=== PATIENT | male | born 1980 | race Two or more races ===

== ENCOUNTER → 2017-12-14 | Outpatient (CLI) | payer OTHER | END | disposition home or self-care (01) | LOC: STAR 14:37 | PROVIDERS: ATTEND Surgery | DX: Z02.9 Encounter for administrative examinations, unspecified (principal) ==

== ENCOUNTER 2017-12-23 11:50 | Day surgery (SDC) | payer OTHER ==
[~2017-12-23] VITALS: Ht 188 cm; Wt 120.7 kg
[2017-12-23] MEDS ORDERED: EPINEPHRINE 1 MG/ML, 1ML ONE (12:00)
[2017-12-23] MEDS ORDERED: BUPIVACAINE/PF 0.5% ONE (12:00)
[2017-12-23] MEDS ORDERED: LACTATED RINGERS 1,000 ML IV SCH ×2 (12:31→14:35)
[2017-12-23 12:32] VITALS: BP 160/94
[2017-12-23] MEDS ORDERED: FENTANYL PF 250 MCG/5ML ONE (13:25)
[2017-12-23] MEDS ORDERED: MIDAZOLAM 1 MG/ML, 2ML ONE (13:25)
[2017-12-23] MEDS ORDERED: CEFAZOLIN 1,000 MG ONE (13:32)
[2017-12-23] MEDS ORDERED: PROPOFOL 10 MG/ML, 50ML ONE (13:32)
[2017-12-23] MEDS ORDERED: DEXAMETHASONE 4 MG/ML, 1ML ONE (13:32)
[2017-12-23] MEDS ORDERED: LIDOCAINE-MPF 2% ,5ML ONE (13:32)
[2017-12-23] MEDS ORDERED: ONDANSETRON 2MG/ML, 2ML ONE (13:32)
[2017-12-23] MEDS ORDERED: BUPIVACAINE/PF 0.5% INFIL ONE (13:58)
[2017-12-23] MEDS ORDERED: EPINEPHRINE 1 MG/ML, 1ML INFIL ONE (13:59)
[2017-12-23] MEDS ORDERED: HYDROmorphone 1 MG/ML, 1ML IV PRN (14:00)
[2017-12-23] MEDS ORDERED: hydrALAzine 20 MG/ML, 1ML IV PRN (14:00)
[2017-12-23] MEDS ORDERED: ACETAMINOPHEN 325 MG TABLET PO PRN (14:00)
[2017-12-23] MEDS ORDERED: KETOROLAC 30 MG/1 ML IV PRN (14:00)
[2017-12-23] MEDS ORDERED: MEPERIDINE/PF 25MG/0.5ML IVPush PRN (14:00)
[2017-12-23] MEDS ORDERED: MORPHINE SULFATE 4 MG/ML, 1ML IVPush PRN (14:00)
[2017-12-23] MEDS ORDERED: LABETALOL 5MG/ML, 20ML IV PRN (14:00)
[2017-12-23] MEDS ORDERED: ALBUTEROL SULFATE 2.5 MG/3 ML NPPB PRN (14:00)
[2017-12-23] MEDS ORDERED: OXYcodone 5 MG/5 ML ORAL.SOL UDC PO PRN (14:00)
[2017-12-23] MEDS ORDERED: LORazepam 2 MG/ML, 1ML IVPush PRN (14:00)
[2017-12-23] MEDS ORDERED: PROMETHAZINE 25 MG/ML, 1ML IV PRN (14:00)
[2017-12-23] MEDS ORDERED: FENTANYL PF 100 MCG/2ML ONE (14:56)
[2017-12-23] MEDS ORDERED: OXYcodone 5 MG/5 ML ORAL.SOL UDC ONE (14:56)
[2017-12-23] MEDS ORDERED: ONDANSETRON 2MG/ML, 2ML IVPush PRN (15:00)
[2017-12-23] MEDS ORDERED: morphine SULFATE 10 MG/ML, 1ML IVPush PRN (15:00)
[2017-12-23] MEDS: FENTANYL PF 100 MCG/2ML IV PRN ×2 (15:05→15:15)
[2017-12-23] MEDS ORDERED: KETOROLAC 30 MG/1 ML ONE (15:26)
[2017-12-23] MEDS ORDERED: morphine SULFATE 10 MG/ML, 1ML ONE (16:04)
== END 2017-12-23 18:40 | disposition home or self-care (01) ==
LOC: OUT 11:50
PROVIDERS: ATTEND Surgery
DX: K40.90 Unilateral inguinal hernia, without obstruction or gangrene, not specified as recurrent (principal); Z72.89 Other problems related to lifestyle; Z87.39 Personal history of other diseases of the musculoskeletal system and connective tissue; Z79.899 Other long term (current) drug therapy; Z98.890 Other specified postprocedural states; Z87.19 Personal history of other diseases of the digestive system
CPT/HCPCS: 49505; C1781; J0171; J0690; J1100; J1885; J2250; J2270; J2405; J2704; J3010; J3490; J7120

== ENCOUNTER 2020-06-20 18:45 | Emergency (ER) | payer SELFPAY ==
[~2020-06-20] VITALS: Ht 185.4 cm; Wt 121.8 kg
[2020-06-20 19:01] VITALS: BP 147/89
[2020-06-20] MEDS ORDERED: PROPARACAINE OPHTH 0.5%, 15ML ONE (19:05)
--- NOTE | 2020-06-20 19:07 | NUR ---
ALCAINE AT TRIAGE VISUAL ACUITY AT TRIAGE
[2020-06-20] MEDS ORDERED: FLUORESCEIN OPHTHALMIC 1 MG STRIP EACHEYE ONE (19:30)
[2020-06-20] MEDS ORDERED: PROPARACAINE OPHTH 0.5%, 15ML EACHEYE ONE (19:30)
[2020-06-20] MEDS ORDERED: FLUORESCEIN OPHTHALMIC 1 MG STRIP ONE (19:47)
--- NOTE | 2020-06-20 20:13 | NUR ---
PT SITTING PATIENTLY. NO NEEDS AT THIS TIME.
--- NOTE | 2020-06-20 20:53 | NUR ---
SPOKE WITH EDP ABOUT SEEING PT. EDP STATES THEY ARE VERY BUSY AND SHOULD BE IN SOON TO SEE PT. UPDATED PT. NO OTHER NEEDS AT THIS TIME. RPT TO [facility] [place].
--- NOTE | 2020-06-20 20:59 | NUR ---
PT IN ROOM, AWAITING ERP
== END 2020-06-20 21:21 | disposition home or self-care (01) ==
LOC: ED 21:19
DX: S05.02XA Injury of conjunctiva and corneal abrasion without foreign body, left eye, initial encounter (principal); X58.XXXA Exposure to other specified factors, initial encounter; Y93.89 Activity, other specified; Y92.89 Other specified places as the place of occurrence of the external cause; Y99.8 Other external cause status
CPT/HCPCS: 99283